=== PATIENT | female | born 1960 | race Two or more races ===

== ENCOUNTER 2021-10-27 07:45 | Outpatient (CLI) | payer OTHER ==
[~2021-10-27 07:45] MED LIST: ALTACE10 MG PO; ATIVAN2 MG/ML IJ; BONIVA3 MG/3 ML/ IV; CALCIUM + D 6001 TAB PO; CARAFATE; CYMBALTA60 MG PO; GASTRINEX CAPSU1 CAP PO; KLONOPIN0.125 MG/T; LIDOCAINE; LYRICA150 MG PO; LYRICA50 MG; MULTIVITAMIN1 CAP PO; NAMENDA10 MG PO; PREVACID30 MG PO; TRASADONE; TRILEPTAL300 MG PO; TYSABRI300 MG/15 IV; ULTRAM ER100 MG PO; WELLBUTRIN SR150 MG PO; WELLBUTRIN100 MG; ZANTAC15 MG/ML; [UNRECOGNIZED DRUG - OTHER]
== END 2021-10-27 07:47 | disposition home or self-care (01) ==
LOC: NUCLEAR 07:45
PROVIDERS: ATTEND Internal Medicine Cardiovascular Disease
DX: R07.89 Other chest pain (principal)
CPT/HCPCS: 78452; 93017; 93306; A9500

== ENCOUNTER 2025-09-23 11:18 | Emergency (ER) | payer OTHER ==
[~2025-09-23] VITALS: Ht 167.6 cm; Wt 52.6 kg
[2025-09-23 12:38] VITALS: BP 118/74; O2SAT 100
[2025-09-23] MEDS ORDERED: ONDANSETRON HCL 2 MG/ML VIAL IV STA (13:19)
[2025-09-23] MEDS ORDERED: 0.9 % SODIUM CHLORIDE 1,000 ML IV STA (13:19)
[2025-09-23] MEDS ORDERED: FAMOTIDINE/PF 20 MG/2 ML VIAL IV STA (13:19)
[2025-09-23] MEDS ORDERED: METOCLOPRAMIDE HCL 5 MG/ML VIAL IV ONE (13:30)
[2025-09-23] MEDS ORDERED: FAMOTIDINE/PF 20 MG/2 ML VIAL ONE (13:41)
[2025-09-23] MEDS ORDERED: METOCLOPRAMIDE HCL 5 MG/ML VIAL ONE (13:41)
[2025-09-23] MEDS ORDERED: ONDANSETRON HCL 2 MG/ML VIAL ONE (13:41)
[2025-09-23 15:10] LABS: BASO % 0.2 % (0.1-1.2); EOS # 0.00 (0.04-0.54); EOS % 0.0 % (0.7-7.0); LYMPH # 0.03 (1.18-3.74); LYMPH % 0.6 % (19.3-53.1); MEAN PLATELET VOLUME 9.50 fl (9.4-12.4); MONO # 0.12 (0.24-0.82); MONO % 2.3 % (4.7-12.5); NEUT # 5.03 (1.56-6.13); NEUT % 96.7 % (34.0-71.1); RED CELL DISTRIBUTION WIDTH 13.7 % (11.6-14.4)
[2025-09-23 15:19] LABS: ALT/SGPT 29.0 U/L (12-78); AST/SGOT 47.0 U/L (15-37); BILIRUBIN TOTAL 0.51 mg/dL (0.3-1.2); BILIRUBIN,CONJUGATED 0.17 mg/dL (0.0-0.2); BUN CREA RATIO 36.0 (7.0-25.0); CREATININE SERUM 0.56 mg/dL (0.55-1.02); GFR 108.64; GLUCOSE FASTING 111.0 mg/dL (65-100); OSMOLALITY SERUM 286.0 MOSM/KG (275-295)
[2025-09-23 15:21] LABS: INR 0.98
[2025-09-23] MEDS ORDERED: CIPRO500 MG PO (16:13)
[2025-09-23] MEDS ORDERED: DICY20TA PO (16:13)
[2025-09-23] MEDS ORDERED: INTESTINEX680 M2 PO (16:13)
[2025-09-23] MEDS ORDERED: METRONIDAZOLE500 MG PO (16:13)
[2025-09-23] MEDS ORDERED: PEPCID AC20 MG PO (16:13)
== END 2025-09-23 17:12 | disposition home or self-care (01) ==
LOC: ER 11:19
PROVIDERS: General Practice
DX: K52.89 Other specified noninfective gastroenteritis and colitis (principal); Z88.0 Allergy status to penicillin; I10 Essential (primary) hypertension; K57.30 Diverticulosis of large intestine without perforation or abscess without bleeding